=== PATIENT | female | born 1960 | race Hispanic/Latino ===

== ENCOUNTER 2020-07-23 12:17 | Inpatient (IN) | payer BC ==
[~2020-07-23] VITALS: Ht 157.5 cm; Wt 76.1 kg
[2020-07-23 13:11] LABS: APPEARANCE,URINE Clear (CLEAR); BILIRUBIN,URINE Negative (NEGATIVE); COLOR,URINE Yellow (YELLOW); GLUCOSE, URINE (UA) Negative (NEGATIVE); KETONES,URINE >=160 mg/dL (NEGATIVE); LEUKOCYTE ESTERASE ,URINE Trace (NEGATIVE); NITRATE,URINE Negative (NEGATIVE); OCCULT BLOOD,URINE Trace (NEGATIVE); PROTEIN,URINE POS 1+ mg/dL (NEGATIVE)
[2020-07-23 13:18] LABS: BACTERIA,URINE Moderate /HPF (None Seen); MUCUS,URINE Moderate LPF (None Seen); SQUAMOUS EPITHELIAL CELL,UR Few /HPF (0-2)
[2020-07-23 13:22] LABS: BASOPHILS % (AUTO) 0.4 % (0.0-5.0); EOSINOPHILS % (AUTO) 0.2 % (0.0-8.0); HEMATOCRIT 37.8 % (36-48); LYMPHOCYTES % (AUTO) 8.7 % (21.0-51.0); MEAN CORPUSCULAR HEMOGLOBIN 29.2 pg (27.0-33.0); MEAN CORPUSCULAR HGB CONC 33.1 g/dL (32.0-36.0); MEAN CORPUSCULAR VOLUME 88.3 fL (79-99); MONOCYTES % (AUTO) 12.4 % (3.0-13.0); NEUTROPHILS % (AUTO) 77.8 % (40.0-77.0); PLATELET COUNT (AUTO) 596 K/uL (130-400); RED BLOOD CELL COUNT(AUTO) 4.28 MIL/uL (4.00-5.50); RED CELL DISTRIBUTION WIDTH 13.1 % (11.0-15.5); WHITE BLOOD COUNT (AUTO) 14.9 K/uL (4.8-10.8)
[2020-07-23 13:36] LABS: CREATININE 0.8 mg/dL (0.5-1.5); POTASSIUM 3.2 mmol/L (3.5-5.1)
[2020-07-23] MEDS ORDERED: ONDANSETRON HCL 4 MG/2 ML VIAL ONE ×2 (13:36→18:52)
[2020-07-23] MEDS ORDERED: MORPHINE SULFATE 2 MG/ML 1ML SYG ONE ×3 (13:37→18:52)
[2020-07-23] MEDS ORDERED: LACTATED RINGERS 1000ML 2,000 ML IV ONE (13:37)
[2020-07-23 13:40] LABS: ALBUMIN 2.9 g/dL (3.5-5.0); BILIRUBIN,TOTAL 0.5 mg/dL (0.2-1.0); TOTAL PROTEIN, SERUM 8.1 g/dL (6.0-8.3)
[2020-07-23] MEDS ORDERED: DIATR MEGLU/DIATRIZOATE SODIUM 30 ML BOTTLE ONE (14:11)
[2020-07-23] MEDS ORDERED: IOHEXOL-350 75 ML VIAL IV ONE (14:11)
[2020-07-23] MEDS ORDERED: ZOSYN 3.375GM+NS 50ML 50 ML IV ONE (15:14)
[2020-07-23] MEDS ORDERED: LIDOCAINE HCL-MPF 1% 2ML VIAL IV PRN (16:00)
[2020-07-23] MEDS ORDERED: VANCOMYCIN 1GM+NS 250ML 250 ML IV SCH (16:00)
[2020-07-23] MEDS ORDERED: ACETAMINOPHEN 325 MG TAB PO PRN ×2 (16:00)
[2020-07-23] MEDS ORDERED: LACTULOSE 20 GM/30 ML UDCUP PO PRN (16:00)
[2020-07-23] MEDS: SODIUM CHLORIDE 0.9% 1000ML 1,000 ML IV SCH ×2 (16:00→23:46)
[2020-07-23] MEDS ORDERED: COMPOUND IV REFRIGERATED 1 EACH IVSOLN MISC PRN (16:15)
[2020-07-23 16:17] LABS: INR 1.25 (0.85-1.15); PROTHROMBIN TIME 13.1 SEC (9.6-11.6)
[2020-07-23] MEDS ORDERED: ENOXAPARIN SODIUM 40 MG/0.4 ML SYRINGE SQ ONE (16:29)
[2020-07-23] MEDS ORDERED: VANCOMYCIN 1GM+NS 250ML 250 ML IV ONE (16:29)
[2020-07-23] MEDS ORDERED: SODIUM CHLORIDE 0.9% 1000ML 1,000 ML IV ONE (16:30)
[2020-07-23] MEDS ORDERED: POTASSIUM CHLORIDE 10MEQ/100ML 100 ML IV ONE (18:52)
[2020-07-23] MEDS ORDERED: LIDOCAINE HCL-MPF 1% 2ML VIAL ONE (18:53)
[2020-07-23 20:46] VITALS: BP 126/75
[2020-07-23] MEDS ORDERED: ZOSYN 3.375GM+NS 50ML 50 ML IV SCH (21:00)
[2020-07-23] MEDS: FAMOTIDINE/PF 20 MG/2 ML VIAL IV SCH (21:11)
[2020-07-23] MEDS: VANCOMYCIN 1.25 GM in SODIUM CHLORIDE 0.9% 250 ML IV SCH (21:11)
[2020-07-23 21:16] VITALS: BP 119/71
[2020-07-23 22:18] VITALS: BP 103/67
[2020-07-23 23:30] VITALS: BP 132/75
[2020-07-24] VITALS (24 sets, daily range): BP systolic 90–151; BP diastolic 58–89
[2020-07-24] MEDS: LEVOFLOXACIN 500 MG/D5W 100 ML 100 ML IV SCH (00:15)
[2020-07-24] MEDS ORDERED: LEVOFLOXACIN 500 MG/D5W 100 ML 100 ML ONE (00:18)
[2020-07-24] MEDS ORDERED: LEVOFLOXACIN 500 MG/D5W 100 ML 100 ML IV SCH (00:30)
[2020-07-24] MEDS: MORPHINE SULFATE 2 MG/ML 1ML SYG IV PRN ×5 (00:45→23:15)
[2020-07-24] MEDS: ONDANSETRON HCL 4 MG/2 ML VIAL IV PRN ×3 (00:51→19:20)
[2020-07-24 04:48] LABS: BASOPHILS % (AUTO) 0.6 % (0.0-5.0); EOSINOPHILS % (AUTO) 0.3 % (0.0-8.0); HEMATOCRIT 32.2 % (36-48); LYMPHOCYTES % (AUTO) 14.8 % (21.0-51.0); MEAN CORPUSCULAR HEMOGLOBIN 28.9 pg (27.0-33.0); MEAN CORPUSCULAR HGB CONC 32.6 g/dL (32.0-36.0); MEAN CORPUSCULAR VOLUME 88.7 fL (79-99); NEUTROPHILS % (AUTO) 71.6 % (40.0-77.0); PLATELET COUNT (AUTO) 479 K/uL (130-400); RED BLOOD CELL COUNT(AUTO) 3.63 MIL/uL (4.00-5.50); RED CELL DISTRIBUTION WIDTH 13.3 % (11.0-15.5); WHITE BLOOD COUNT (AUTO) 12.2 K/uL (4.8-10.8)
[2020-07-24] MEDS ORDERED: METRONIDAZOLE 500MG/100ML BAG 100 ML ONE (04:51)
[2020-07-24 05:00] LABS: CREATININE 0.7 mg/dL (0.5-1.5); POTASSIUM 3.2 mmol/L (3.5-5.1)
[2020-07-24] MEDS: METRONIDAZOLE 500MG/100ML BAG 100 ML IVPB SCH ×3 (05:02→22:44)
[2020-07-24] MEDS ORDERED: METRONIDAZOLE 500MG/100ML BAG 100 ML IVPB SCH (06:00)
[2020-07-24] MEDS: VANCOMYCIN 1.25 GM in SODIUM CHLORIDE 0.9% 250 ML IV SCH ×2 (08:52→20:47)
[2020-07-24] MEDS: POTASSIUM CHLORIDE 10MEQ/100ML 100 ML IV PRN (08:53)
[2020-07-24] MEDS: FAMOTIDINE/PF 20 MG/2 ML VIAL IV SCH ×2 (08:56→20:46)
[2020-07-24] MEDS: SODIUM CHLORIDE 0.9% 1000ML 1,000 ML IV SCH ×3 (08:56→18:23)
[2020-07-24] MEDS: ENOXAPARIN SODIUM 40 MG/0.4 ML SYRINGE SQ SCH (09:00)
[2020-07-24] MEDS ORDERED: FENTANYL CITRATE PF 50 MCG/1 ML 2ML VIAL ONE ×2 (12:16→13:54)
[2020-07-24] MEDS ORDERED: MIDAZOLAM HCL 1 MG/ML 2ML VIAL ONE (12:17)
[2020-07-24] MEDS ORDERED: HYDROMORPHONE 1 MG/1 ML AMP ONE (13:32)
[2020-07-24] MEDS ORDERED: HYDROMORPHONE 1 MG/1 ML AMP IVP STA (13:45)
[2020-07-24] MEDS ORDERED: FENTANYL CITRATE PF 50 MCG/1 ML 2ML VIAL IVP SCH (13:49)
[2020-07-24] MEDS ORDERED: KETOROLAC TROMETHAMINE 30MG/ML IV STA (14:46)
[2020-07-25] VITALS (19 sets, daily range): BP systolic 93–146; BP diastolic 53–93
[2020-07-25] MEDS: LEVOFLOXACIN 500 MG/D5W 100 ML 100 ML IV SCH ×2 (00:31→23:56)
[2020-07-25] MEDS: SODIUM CHLORIDE 0.9% 1000ML 1,000 ML IV SCH ×3 (01:27→14:16)
[2020-07-25] MEDS: KETOROLAC TROMETHAMINE 30MG/ML IV PRN ×4 (02:12→21:25)
[2020-07-25 03:35] LABS: BASOPHILS % (AUTO) 0.4 % (0.0-5.0); EOSINOPHILS % (AUTO) 0.4 % (0.0-8.0); HEMATOCRIT 30.3 % (36-48); LYMPHOCYTES % (AUTO) 12.1 % (21.0-51.0); MEAN CORPUSCULAR HEMOGLOBIN 28.7 pg (27.0-33.0); MEAN CORPUSCULAR HGB CONC 31.7 g/dL (32.0-36.0); MEAN CORPUSCULAR VOLUME 90.4 fL (79-99); MONOCYTES % (AUTO) 12.1 % (3.0-13.0); NEUTROPHILS % (AUTO) 74.4 % (40.0-77.0); PLATELET COUNT (AUTO) 471 K/uL (130-400); RED BLOOD CELL COUNT(AUTO) 3.35 MIL/uL (4.00-5.50); RED CELL DISTRIBUTION WIDTH 13.7 % (11.0-15.5); WHITE BLOOD COUNT (AUTO) 9.5 K/uL (4.8-10.8)
[2020-07-25 04:00] LABS: ALBUMIN 1.9 g/dL (3.5-5.0); BILIRUBIN,TOTAL 0.3 mg/dL (0.2-1.0); CREATININE 0.7 mg/dL (0.5-1.5); MAGNESIUM 1.9 mg/dL (1.80-2.40); POTASSIUM 3.2 mmol/L (3.5-5.1); TOTAL PROTEIN, SERUM 5.9 g/dL (6.0-8.3)
[2020-07-25] MEDS: POTASSIUM CHLORIDE 10MEQ/100ML 100 ML IV PRN ×2 (04:05→05:37)
[2020-07-25 04:49] LABS: INR 1.4 (0.85-1.15); PROTHROMBIN TIME 14.5 SEC (9.6-11.6)
[2020-07-25] MEDS: METRONIDAZOLE 500MG/100ML BAG 100 ML IVPB SCH ×3 (05:37→23:56)
[2020-07-25] MEDS: FAMOTIDINE/PF 20 MG/2 ML VIAL IV SCH ×2 (08:49→19:57)
[2020-07-25] MEDS: ENOXAPARIN SODIUM 40 MG/0.4 ML SYRINGE SQ SCH ×2 (08:50→09:00)
[2020-07-25] MEDS: VANCOMYCIN 1.25 GM in SODIUM CHLORIDE 0.9% 250 ML IV SCH ×2 (11:44→21:24)
[2020-07-25] MEDS: MORPHINE SULFATE 2 MG/ML 1ML SYG IV PRN (15:05)
[2020-07-25] MEDS: ONDANSETRON HCL 4 MG/2 ML VIAL IV PRN ×2 (15:09→23:57)
[2020-07-25] MEDS ORDERED: CLINIMIX E 4.25%-5% SOLUTION 2,000 ML IV ONE (17:00)
[2020-07-25 20:03] LABS: CREATININE 0.7 mg/dL (0.5-1.5); POTASSIUM 3.4 mmol/L (3.5-5.1)
[2020-07-26 00:10] VITALS: BP 139/76
[2020-07-26 04:13] LABS: BASOPHILS % (AUTO) 0.5 % (0.0-5.0); EOSINOPHILS % (AUTO) 1.7 % (0.0-8.0); HEMATOCRIT 29.4 % (36-48); MEAN CORPUSCULAR HEMOGLOBIN 29.2 pg (27.0-33.0); MEAN CORPUSCULAR HGB CONC 31.6 g/dL (32.0-36.0); MEAN CORPUSCULAR VOLUME 92.2 fL (79-99); MONOCYTES % (AUTO) 12.8 % (3.0-13.0); NEUTROPHILS % (AUTO) 66.2 % (40.0-77.0); PLATELET COUNT (AUTO) 485 K/uL (130-400); RED BLOOD CELL COUNT(AUTO) 3.19 MIL/uL (4.00-5.50); WHITE BLOOD COUNT (AUTO) 7.7 K/uL (4.8-10.8)
[2020-07-26 04:32] VITALS: BP 148/78
[2020-07-26 04:36] LABS: CREATININE 0.7 mg/dL (0.5-1.5); POTASSIUM 3.3 mmol/L (3.5-5.1)
[2020-07-26] MEDS: POTASSIUM CHLORIDE 10MEQ/100ML 100 ML IV PRN ×3 (04:44→21:25)
[2020-07-26] MEDS: METRONIDAZOLE 500MG/100ML BAG 100 ML IVPB SCH ×3 (05:30→20:49)
[2020-07-26 07:49] VITALS: BP 138/78
[2020-07-26] MEDS: FAMOTIDINE/PF 20 MG/2 ML VIAL IV SCH ×2 (08:40→20:49)
[2020-07-26] MEDS: KETOROLAC TROMETHAMINE 30MG/ML IV PRN (08:47)
[2020-07-26] MEDS: ENOXAPARIN SODIUM 40 MG/0.4 ML SYRINGE SQ SCH (09:09)
[2020-07-26] MEDS: VANCOMYCIN 1.25 GM in SODIUM CHLORIDE 0.9% 250 ML IV SCH ×2 (09:15→20:49)
[2020-07-26 12:00] VITALS: BP 151/84
[2020-07-26] MEDS: ONDANSETRON HCL 4 MG/2 ML VIAL IV PRN (15:46)
[2020-07-26 16:00] VITALS: BP 146/83
[2020-07-26] MEDS ORDERED: CLINIMIX E 4.25%-5% SOLUTION 2,000 ML IV ONE (19:30)
[2020-07-26 20:00] VITALS: BP 156/89
[2020-07-26] MEDS: LEVOFLOXACIN 500 MG/D5W 100 ML 100 ML IV SCH (23:35)
[2020-07-27] VITALS: BP 147/88
[2020-07-27] MEDS: KETOROLAC TROMETHAMINE 30MG/ML IV PRN (02:44)
[2020-07-27 04:29] VITALS: BP 139/89
[2020-07-27] MEDS: METRONIDAZOLE 500MG/100ML BAG 100 ML IVPB SCH ×3 (05:07→19:55)
[2020-07-27 08:00] VITALS: BP 137/65
[2020-07-27] MEDS: ENOXAPARIN SODIUM 40 MG/0.4 ML SYRINGE SQ SCH (10:22)
[2020-07-27] MEDS: FAMOTIDINE/PF 20 MG/2 ML VIAL IV SCH (10:22)
[2020-07-27] MEDS: VANCOMYCIN 1.25 GM in SODIUM CHLORIDE 0.9% 250 ML IV SCH (10:22)
[2020-07-27 12:00] VITALS: BP 158/97
[2020-07-27] MEDS ORDERED: VANCOMYCIN 1.25 GM in SODIUM CHLORIDE 0.9% 250 ML IV SCH (14:00)
[2020-07-27] MEDS: PANTOPRAZOLE 40 MG/VIAL IVP SCH (14:30)
[2020-07-27 16:00] VITALS: BP 172/91
[2020-07-27] MEDS: POTASSIUM CHLORIDE 10MEQ/100ML 100 ML IV PRN (16:46)
[2020-07-27] MEDS ORDERED: CLINIMIX E 4.25%-5% SOLUTION 2,000 ML IV ONE (19:45)
[2020-07-27 20:36] VITALS: BP 163/81
[2020-07-27] MEDS ORDERED: ACETAMINOPHEN 650 MG SUPPOSITORY RC ONE (22:32)
[2020-07-27] MEDS: LEVOFLOXACIN 500 MG/D5W 100 ML 100 ML IV SCH (23:20)
[2020-07-28] VITALS (8 sets, daily range): BP systolic 155–168; BP diastolic 83–96
[2020-07-28] MEDS: METRONIDAZOLE 500MG/100ML BAG 100 ML IVPB SCH ×3 (05:11→20:26)
[2020-07-28 06:39] LABS: HEMATOCRIT 28.4 % (36-48); MEAN CORPUSCULAR HEMOGLOBIN 29.1 pg (27.0-33.0); MEAN CORPUSCULAR HGB CONC 32.4 g/dL (32.0-36.0); MEAN CORPUSCULAR VOLUME 89.9 fL (79-99); PLATELET COUNT (AUTO) 459 K/uL (130-400); RED BLOOD CELL COUNT(AUTO) 3.16 MIL/uL (4.00-5.50); RED CELL DISTRIBUTION WIDTH 13.8 % (11.0-15.5)
[2020-07-28 06:58] LABS: ALBUMIN 1.9 g/dL (3.5-5.0); BILIRUBIN,TOTAL 0.1 mg/dL (0.2-1.0); CREATININE 0.6 mg/dL (0.5-1.5); POTASSIUM 3.3 mmol/L (3.5-5.1); TOTAL PROTEIN, SERUM 5.8 g/dL (6.0-8.3)
[2020-07-28] MEDS: POTASSIUM CHLORIDE 10MEQ/100ML 100 ML IV PRN ×3 (07:22→20:29)
[2020-07-28 09:02] LABS: EOSINOPHILS % (MANUAL) 4 % (1-6); LYMPHOCYTES % (MANUAL) 28 % (22-44); MAN.DIFF COMMENT-IMPRESSION MANUAL DIFFERENTIAL; MONOCYTES % (MANUAL) 10 % (2-9); SEGMENTED NEUTROPHILS % 58 % (40-70)
[2020-07-28 09:03] LABS: PLATELET MORPHOLOGY COMMENT SLIGHT INCREASED
[2020-07-28] MEDS: PANTOPRAZOLE 40 MG/VIAL IVP SCH (09:27)
[2020-07-28] MEDS: ENOXAPARIN SODIUM 40 MG/0.4 ML SYRINGE SQ SCH (09:27)
[2020-07-28] MEDS: LEVOFLOXACIN 500 MG/D5W 100 ML 100 ML IV SCH (23:19)
[2020-07-29] MEDS ORDERED: CLINIMIX E 4.25%-5% SOLUTION 2,000 ML IV ONE
[2020-07-29 04:09] VITALS: BP 157/82
[2020-07-29] MEDS: METRONIDAZOLE 500MG/100ML BAG 100 ML IVPB SCH ×3 (04:44→21:40)
[2020-07-29 06:34] LABS: HEMATOCRIT 30.5 % (36-48); MEAN CORPUSCULAR HEMOGLOBIN 29.1 pg (27.0-33.0); MEAN CORPUSCULAR HGB CONC 32.5 g/dL (32.0-36.0); MEAN CORPUSCULAR VOLUME 89.7 fL (79-99); RED BLOOD CELL COUNT(AUTO) 3.4 MIL/uL (4.00-5.50); RED CELL DISTRIBUTION WIDTH 14.2 % (11.0-15.5); WHITE BLOOD COUNT (AUTO) 6.6 K/uL (4.8-10.8)
[2020-07-29 07:04] LABS: BILIRUBIN,TOTAL 0.2 mg/dL (0.2-1.0); CREATININE 0.6 mg/dL (0.5-1.5); MAGNESIUM 2.1 mg/dL (1.80-2.40); POTASSIUM 4.2 mmol/L (3.5-5.1); TOTAL PROTEIN, SERUM 6.3 g/dL (6.0-8.3)
[2020-07-29 07:35] VITALS: BP 152/100
[2020-07-29] MEDS ORDERED: DIATR MEGLU/DIATRIZOATE SODIUM 30 ML BOTTLE ONE (08:44)
[2020-07-29] MEDS: ENOXAPARIN SODIUM 40 MG/0.4 ML SYRINGE SQ SCH (09:35)
[2020-07-29] MEDS: PANTOPRAZOLE 40 MG/VIAL IVP SCH (09:35)
[2020-07-29 11:19] VITALS: BP 167/92
[2020-07-29] MEDS: ONDANSETRON HCL 4 MG/2 ML VIAL IV PRN (12:00)
[2020-07-29 16:00] VITALS: BP 147/88
[2020-07-29] MEDS: PROCALAMINE IV SOLUTION 1,000 ML IV SCH (17:00)
[2020-07-29 20:15] VITALS: BP 148/89
[2020-07-29 23:21] VITALS: BP 139/80
[2020-07-29] MEDS: LEVOFLOXACIN 500 MG/D5W 100 ML 100 ML IV SCH (23:57)
[2020-07-30] VITALS (22 sets, daily range): BP systolic 112–170; BP diastolic 67–102
[2020-07-30 04:26] LABS: MEAN CORPUSCULAR HEMOGLOBIN 28.5 pg (27.0-33.0); MEAN CORPUSCULAR HGB CONC 31.5 g/dL (32.0-36.0); MEAN CORPUSCULAR VOLUME 90.4 fL (79-99); RED BLOOD CELL COUNT(AUTO) 3.65 MIL/uL (4.00-5.50); RED CELL DISTRIBUTION WIDTH 14.2 % (11.0-15.5); WHITE BLOOD COUNT (AUTO) 7.4 K/uL (4.8-10.8)
[2020-07-30 04:56] LABS: ALBUMIN 2.2 g/dL (3.5-5.0); BILIRUBIN,TOTAL 0.2 mg/dL (0.2-1.0); CREATININE 0.7 mg/dL (0.5-1.5); MAGNESIUM 2.1 mg/dL (1.80-2.40); POTASSIUM 4.2 mmol/L (3.5-5.1); TOTAL PROTEIN, SERUM 6.5 g/dL (6.0-8.3)
[2020-07-30] MEDS: METRONIDAZOLE 500MG/100ML BAG 100 ML IVPB SCH ×3 (05:12→21:18)
[2020-07-30] MEDS: ENOXAPARIN SODIUM 40 MG/0.4 ML SYRINGE SQ SCH (09:00)
[2020-07-30] MEDS ORDERED: MIDAZOLAM HCL 1 MG/ML 2ML VIAL ONE (09:00)
[2020-07-30] MEDS ORDERED: PROPOFOL 10 MG/ML 20ML VIAL IV ONE (09:00)
[2020-07-30] MEDS: ONDANSETRON HCL 4 MG/2 ML VIAL IV PRN ×2 (10:24→18:27)
[2020-07-30] MEDS: PANTOPRAZOLE 40 MG/VIAL IVP SCH (13:45)
[2020-07-30] MEDS: LEVOFLOXACIN 500 MG/D5W 100 ML 100 ML IV SCH (23:44)
[2020-07-31] MEDS: PROCALAMINE IV SOLUTION 1,000 ML IV SCH
[2020-07-31] MEDS: ONDANSETRON HCL 4 MG/2 ML VIAL IV PRN ×2 (02:18→22:24)
[2020-07-31 04:05] VITALS: BP 147/68
[2020-07-31] MEDS: METRONIDAZOLE 500MG/100ML BAG 100 ML IVPB SCH ×3 (06:16→20:24)
[2020-07-31 06:33] LABS: HEMATOCRIT 34.1 % (36-48); MEAN CORPUSCULAR HEMOGLOBIN 28.5 pg (27.0-33.0); MEAN CORPUSCULAR HGB CONC 31.4 g/dL (32.0-36.0); MEAN CORPUSCULAR VOLUME 90.7 fL (79-99); RED BLOOD CELL COUNT(AUTO) 3.76 MIL/uL (4.00-5.50); RED CELL DISTRIBUTION WIDTH 14.5 % (11.0-15.5); WHITE BLOOD COUNT (AUTO) 6.7 K/uL (4.8-10.8)
[2020-07-31 06:51] LABS: BILIRUBIN,TOTAL 0.2 mg/dL (0.2-1.0); CREATININE 0.8 mg/dL (0.5-1.5); MAGNESIUM 2.3 mg/dL (1.80-2.40); POTASSIUM 4.2 mmol/L (3.5-5.1); TOTAL PROTEIN, SERUM 6.6 g/dL (6.0-8.3)
[2020-07-31 09:25] VITALS: BP 128/88
[2020-07-31] MEDS ORDERED: DIATR MEGLU/DIATRIZOATE SODIUM 30 ML BOTTLE ONE (09:27)
[2020-07-31] MEDS: PANTOPRAZOLE 40 MG/VIAL IVP SCH ×2 (09:55→23:16)
[2020-07-31] MEDS: ENOXAPARIN SODIUM 40 MG/0.4 ML SYRINGE SQ SCH (13:49)
[2020-07-31 14:30] VITALS: BP 148/77
[2020-07-31 16:36] VITALS: BP 120/72
[2020-07-31] MEDS ORDERED: PROCALAMINE IV SOLUTION 1,000 ML IV SCH (20:15)
[2020-07-31 20:28] VITALS: BP 141/72
[2020-07-31] MEDS ORDERED: LEVOFLOXACIN 750 MG/D5W 150 ML 150 ML ONE (22:28)
[2020-07-31] MEDS ORDERED: PANTOPRAZOLE 40 MG/VIAL ONE (23:10)
[2020-07-31] MEDS: LEVOFLOXACIN 750 MG/D5W 150 ML 150 ML IV SCH (23:15)
[2020-08-01 00:24] VITALS: BP 133/79
[2020-08-01 04:24] VITALS: BP 137/81
[2020-08-01 05:14] LABS: HEMATOCRIT 34.1 % (36-48); MEAN CORPUSCULAR HEMOGLOBIN 28.9 pg (27.0-33.0); MEAN CORPUSCULAR HGB CONC 31.7 g/dL (32.0-36.0); MEAN CORPUSCULAR VOLUME 91.2 fL (79-99); PLATELET COUNT (AUTO) 344 K/uL (130-400); RED BLOOD CELL COUNT(AUTO) 3.74 MIL/uL (4.00-5.50); RED CELL DISTRIBUTION WIDTH 14.4 % (11.0-15.5)
[2020-08-01] MEDS: METRONIDAZOLE 500MG/100ML BAG 100 ML IVPB SCH ×3 (05:20→20:01)
[2020-08-01 05:26] LABS: INR 1.4 (0.85-1.15); PROTHROMBIN TIME 14.5 SEC (9.6-11.6)
[2020-08-01 05:45] LABS: ALBUMIN 2.2 g/dL (3.5-5.0); BILIRUBIN,TOTAL 0.2 mg/dL (0.2-1.0); CREATININE 0.7 mg/dL (0.5-1.5); TOTAL PROTEIN, SERUM 6.5 g/dL (6.0-8.3)
[2020-08-01 07:07] LABS: LYMPHOCYTES % (MANUAL) 23 % (22-44); MONOCYTES % (MANUAL) 11 % (2-9); SEGMENTED NEUTROPHILS % 66 % (40-70)
[2020-08-01 07:08] LABS: MAN.DIFF COMMENT-IMPRESSION MANUAL DIFFERENTIAL; PLATELET MORPHOLOGY COMMENT LARGE PLTS PRESENT
[2020-08-01] MEDS: ENOXAPARIN SODIUM 40 MG/0.4 ML SYRINGE SQ SCH (09:00)
[2020-08-01 09:49] VITALS: BP 136/82
[2020-08-01] MEDS: LEVOFLOXACIN 750 MG/D5W 150 ML 150 ML IV SCH (11:19)
[2020-08-01 13:54] VITALS: BP 119/82
[2020-08-01 19:22] VITALS: BP 121/86
[2020-08-01] MEDS ORDERED: MAG HYDROX/AL HYDROX/SIMETH ES 30 ML SUSP UDCUP ONE (19:41)
[2020-08-01] MEDS ORDERED: MAG HYDROX/AL HYDROX/SIMETH ES 30 ML SUSP UDCUP PO PRN (19:45)
[2020-08-01 20:15] VITALS: BP 123/85
[2020-08-01] MEDS: PROCALAMINE IV SOLUTION 1,000 ML IV SCH (21:44)
[2020-08-02 00:46] VITALS: BP 137/82
[2020-08-02] MEDS: ACETAMINOPHEN 650 MG SUPPOSITORY RC PRN ×3 (03:22→18:14)
[2020-08-02 04:19] LABS: BASOPHILS % (AUTO) 0.6 % (0.0-5.0); EOSINOPHILS % (AUTO) 0.7 % (0.0-8.0); HEMATOCRIT 36.3 % (36-48); LYMPHOCYTES % (AUTO) 15.4 % (21.0-51.0); MEAN CORPUSCULAR HEMOGLOBIN 28.9 pg (27.0-33.0); MEAN CORPUSCULAR VOLUME 90.3 fL (79-99); MONOCYTES % (AUTO) 13.2 % (3.0-13.0); NEUTROPHILS % (AUTO) 68.4 % (40.0-77.0); PLATELET COUNT (AUTO) 306 K/uL (130-400); RED BLOOD CELL COUNT(AUTO) 4.02 MIL/uL (4.00-5.50); RED CELL DISTRIBUTION WIDTH 14.6 % (11.0-15.5); WHITE BLOOD COUNT (AUTO) 10.2 K/uL (4.8-10.8)
[2020-08-02 04:31] LABS: ALBUMIN 2.4 g/dL (3.5-5.0); BILIRUBIN,TOTAL 0.3 mg/dL (0.2-1.0); CREATININE 0.8 mg/dL (0.5-1.5); MAGNESIUM 2.2 mg/dL (1.80-2.40); POTASSIUM 4.1 mmol/L (3.5-5.1)
[2020-08-02] MEDS: METRONIDAZOLE 500MG/100ML BAG 100 ML IVPB SCH ×3 (04:46→21:39)
[2020-08-02 06:00] VITALS: BP 135/77
[2020-08-02] MEDS: PANTOPRAZOLE 40 MG/VIAL IVP SCH (09:28)
[2020-08-02] MEDS: LEVOFLOXACIN 750 MG/D5W 150 ML 150 ML IV SCH (09:28)
[2020-08-02] MEDS: ENOXAPARIN SODIUM 40 MG/0.4 ML SYRINGE SQ SCH (09:29)
[2020-08-02 09:59] VITALS: BP 155/94
[2020-08-02] MEDS ORDERED: APAP/CODEINE 120/12MG 5ML PO PRN ×2 (12:45→13:00)
[2020-08-02 13:42] VITALS: BP 137/87
[2020-08-02 17:40] VITALS: BP 147/82
[2020-08-02 20:00] VITALS: BP 146/95
[2020-08-02] MEDS: PROCALAMINE IV SOLUTION 1,000 ML IV SCH (21:39)
[2020-08-02] MEDS ORDERED: HYDROMORPHONE 1 MG/1 ML AMP IVP ONE (23:45)
[2020-08-03] VITALS: BP 150/86
[2020-08-03 04:00] VITALS: BP 119/79
[2020-08-03] MEDS: METRONIDAZOLE 500MG/100ML BAG 100 ML IVPB SCH ×3 (05:13→20:00)
[2020-08-03 06:44] LABS: BASOPHILS % (AUTO) 0.6 % (0.0-5.0); EOSINOPHILS % (AUTO) 0.6 % (0.0-8.0); HEMATOCRIT 34.9 % (36-48); LYMPHOCYTES % (AUTO) 13.1 % (21.0-51.0); MEAN CORPUSCULAR HEMOGLOBIN 28.6 pg (27.0-33.0); MEAN CORPUSCULAR HGB CONC 31.8 g/dL (32.0-36.0); MEAN CORPUSCULAR VOLUME 89.9 fL (79-99); MONOCYTES % (AUTO) 10.2 % (3.0-13.0); NEUTROPHILS % (AUTO) 74.2 % (40.0-77.0); PLATELET COUNT (AUTO) 348 K/uL (130-400); RED BLOOD CELL COUNT(AUTO) 3.88 MIL/uL (4.00-5.50); RED CELL DISTRIBUTION WIDTH 14.7 % (11.0-15.5)
[2020-08-03 07:03] LABS: ALBUMIN 2.1 g/dL (3.5-5.0); BILIRUBIN,TOTAL 0.3 mg/dL (0.2-1.0); CREATININE 0.8 mg/dL (0.5-1.5); MAGNESIUM 2.3 mg/dL (1.80-2.40); PHOSPHORUS 3.3 mg/dL (2.5-4.9); POTASSIUM 4.2 mmol/L (3.5-5.1); TOTAL PROTEIN, SERUM 6.5 g/dL (6.0-8.3)
[2020-08-03 08:00] VITALS: BP 147/83
[2020-08-03] MEDS: LEVOFLOXACIN 750 MG/D5W 150 ML 150 ML IV SCH (08:09)
[2020-08-03] MEDS: ENOXAPARIN SODIUM 40 MG/0.4 ML SYRINGE SQ SCH (08:09)
[2020-08-03] MEDS: PANTOPRAZOLE 40 MG/VIAL IVP SCH (08:09)
[2020-08-03] MEDS: ACETAMINOPHEN 650 MG SUPPOSITORY RC PRN ×2 (10:13→18:13)
[2020-08-03] MEDS: LORAZEPAM 2 MG/ML 1 ML VIAL IVP PRN (11:23)
[2020-08-03 12:00] VITALS: BP 126/73
[2020-08-03 16:00] VITALS: BP 145/80
[2020-08-03 20:00] VITALS: BP 122/74
[2020-08-03] MEDS: PROCALAMINE IV SOLUTION 1,000 ML IV SCH (20:27)
[2020-08-04] VITALS (7 sets, daily range): BP systolic 119–145; BP diastolic 74–92
[2020-08-04] MEDS: METRONIDAZOLE 500MG/100ML BAG 100 ML IVPB SCH ×3 (04:56→21:49)
[2020-08-04 06:27] LABS: BASOPHILS % (AUTO) 0.6 % (0.0-5.0); EOSINOPHILS % (AUTO) 1.3 % (0.0-8.0); HEMATOCRIT 33.4 % (36-48); LYMPHOCYTES % (AUTO) 18.1 % (21.0-51.0); MEAN CORPUSCULAR HEMOGLOBIN 28.8 pg (27.0-33.0); MONOCYTES % (AUTO) 11.5 % (3.0-13.0); PLATELET COUNT (AUTO) 334 K/uL (130-400); RED BLOOD CELL COUNT(AUTO) 3.71 MIL/uL (4.00-5.50); RED CELL DISTRIBUTION WIDTH 14.7 % (11.0-15.5)
[2020-08-04 06:58] LABS: BILIRUBIN,TOTAL 0.2 mg/dL (0.2-1.0); CREATININE 0.8 mg/dL (0.5-1.5); MAGNESIUM 2.2 mg/dL (1.80-2.40); PHOSPHORUS 3.2 mg/dL (2.5-4.9); POTASSIUM 4.1 mmol/L (3.5-5.1); TOTAL PROTEIN, SERUM 6.4 g/dL (6.0-8.3)
[2020-08-04] MEDS: LEVOFLOXACIN 750 MG/D5W 150 ML 150 ML IV SCH (08:16)
[2020-08-04] MEDS: ENOXAPARIN SODIUM 40 MG/0.4 ML SYRINGE SQ SCH (08:17)
[2020-08-04] MEDS: PANTOPRAZOLE 40 MG/VIAL IVP SCH (08:17)
[2020-08-04] MEDS: LORAZEPAM 2 MG/ML 1 ML VIAL IVP PRN ×2 (16:59→17:03)
[2020-08-04] MEDS: PROCALAMINE IV SOLUTION 1,000 ML IV SCH (21:59)
[2020-08-05] MEDS: LORAZEPAM 2 MG/ML 1 ML VIAL IVP PRN ×3 (01:07→19:31)
[2020-08-05 04:10] VITALS: BP 132/79
[2020-08-05] MEDS: METRONIDAZOLE 500MG/100ML BAG 100 ML IVPB SCH ×3 (04:52→19:30)
[2020-08-05 05:35] LABS: BASOPHILS % (AUTO) 0.9 % (0.0-5.0); EOSINOPHILS % (AUTO) 1.6 % (0.0-8.0); HEMATOCRIT 33.2 % (36-48); LYMPHOCYTES % (AUTO) 22.9 % (21.0-51.0); MEAN CORPUSCULAR HEMOGLOBIN 28.4 pg (27.0-33.0); MEAN CORPUSCULAR HGB CONC 31.6 g/dL (32.0-36.0); MEAN CORPUSCULAR VOLUME 89.7 fL (79-99); PLATELET COUNT (AUTO) 377 K/uL (130-400); RED CELL DISTRIBUTION WIDTH 14.6 % (11.0-15.5)
[2020-08-05 06:01] LABS: ALBUMIN 2.2 g/dL (3.5-5.0); BILIRUBIN,TOTAL 0.3 mg/dL (0.2-1.0); CREATININE 0.8 mg/dL (0.5-1.5); MAGNESIUM 3.4 mg/dL (1.80-2.40); PHOSPHORUS 3.1 mg/dL (2.5-4.9); POTASSIUM 3.7 mmol/L (3.5-5.1); TOTAL PROTEIN, SERUM 6.6 g/dL (6.0-8.3)
[2020-08-05 08:00] VITALS: BP 129/80
[2020-08-05] MEDS: LEVOFLOXACIN 750 MG/D5W 150 ML 150 ML IV SCH (09:11)
[2020-08-05] MEDS: PANTOPRAZOLE 40 MG/VIAL IVP SCH (09:12)
[2020-08-05] MEDS: ENOXAPARIN SODIUM 40 MG/0.4 ML SYRINGE SQ SCH (09:13)
[2020-08-05 11:00] VITALS: BP 131/70
[2020-08-05] MEDS: PROCALAMINE IV SOLUTION 1,000 ML IV SCH (18:09)
[2020-08-05 20:44] VITALS: BP 136/77
[2020-08-06] MEDS: LORAZEPAM 2 MG/ML 1 ML VIAL IVP PRN (03:55)
[2020-08-06] MEDS: METRONIDAZOLE 500MG/100ML BAG 100 ML IVPB SCH ×3 (03:57→21:20)
[2020-08-06] MEDS: [UNRECOGNIZED DRUG - OTHER] IV SCH (04:06)
[2020-08-06] MEDS: M V I IV SCH (04:06)
[2020-08-06 07:30] VITALS: BP 129/89
[2020-08-06] MEDS: LEVOFLOXACIN 750 MG/D5W 150 ML 150 ML IV SCH (09:00)
[2020-08-06] MEDS: ENOXAPARIN SODIUM 40 MG/0.4 ML SYRINGE SQ SCH (10:05)
[2020-08-06] MEDS: PANTOPRAZOLE 40 MG/VIAL IVP SCH (10:05)
[2020-08-06 11:00] VITALS: BP 126/82
[2020-08-06] MEDS ORDERED: IPRATROPIUM/ALBUTEROL SULFATE 3 ML SOLUTION IH PRN (14:00)
[2020-08-06 16:00] VITALS: BP 131/87
[2020-08-06] MEDS ORDERED: PHARMACY COMMUNICATION MISC SCH (20:15)
[2020-08-06 20:25] VITALS: BP 131/88
[2020-08-06] MEDS: PROCALAMINE IV SOLUTION 1,000 ML IV SCH (21:23)
[2020-08-06] MEDS ORDERED: MORPHINE SULFATE 2 MG/ML 1ML SYG ONE (21:28)
[2020-08-06] MEDS ORDERED: MORPHINE SULFATE 4 MG/1ML SYG IV PRN (21:30)
[2020-08-06] MEDS ORDERED: MORPHINE SULFATE 2 MG/ML 1ML SYG IVP PRN (21:30)
[2020-08-06 23:51] VITALS: BP 132/81
[2020-08-07 03:51] VITALS: BP 132/81
[2020-08-07] MEDS: METRONIDAZOLE 500MG/100ML BAG 100 ML IVPB SCH ×3 (05:32→20:55)
[2020-08-07] MEDS: ACETAMINOPHEN 650 MG SUPPOSITORY RC PRN ×2 (05:32→20:37)
[2020-08-07 08:03] VITALS: BP 133/90
[2020-08-07] MEDS: PANTOPRAZOLE 40 MG/VIAL IVP SCH (09:18)
[2020-08-07] MEDS: LEVOFLOXACIN 750 MG/D5W 150 ML 150 ML IV SCH (09:18)
[2020-08-07] MEDS: ENOXAPARIN SODIUM 40 MG/0.4 ML SYRINGE SQ SCH (09:19)
[2020-08-07 11:00] VITALS: BP 118/94
[2020-08-07] MEDS: LORAZEPAM 2 MG/ML 1 ML VIAL IVP PRN ×2 (11:20→23:02)
[2020-08-07] MEDS: PROCALAMINE IV SOLUTION 1,000 ML IV SCH (12:10)
[2020-08-07 13:10] LABS: HEMOGLOBIN A1C 5.4 % (4.0-6.0)
[2020-08-07 15:59] VITALS: BP 141/86
[2020-08-07] MEDS: MICONAZOLE NITRATE 45 GM CREAM.APPL VG SCH ×2 (18:28→19:19)
[2020-08-07 19:31] LABS: APPEARANCE,URINE Clear (CLEAR); BILIRUBIN,URINE Negative (NEGATIVE); COLOR,URINE Yellow (YELLOW); GLUCOSE, URINE (UA) Negative (NEGATIVE); KETONES,URINE Trace mg/dL (NEGATIVE); LEUKOCYTE ESTERASE ,URINE Small (NEGATIVE); NITRATE,URINE Negative (NEGATIVE); OCCULT BLOOD,URINE Negative (NEGATIVE); PH,URINE 5.5 (5.0-8.0); PROTEIN,URINE Negative (NEGATIVE); UROBILINOGEN,URINE 0.2 mg/dL (0.2-1.0)
[2020-08-07 19:47] LABS: BACTERIA,URINE Few /HPF (None Seen); MUCUS,URINE Few LPF (None Seen); SQUAMOUS EPITHELIAL CELL,UR Moderate /HPF (0-2)
[2020-08-07 20:00] VITALS: BP 144/93
[2020-08-07] MEDS: [UNRECOGNIZED DRUG - OTHER] IV SCH (20:55)
[2020-08-07] MEDS: M V I IV SCH (20:55)
[2020-08-07] MEDS ORDERED: MICONAZOLE NITRATE 45 GM CREAM.APPL VG SCH (21:00)
[2020-08-07] MEDS ORDERED: LACTOBACILLUS RHAMNOSUS GG 1 EACH CAP.SPRINK PO SCH (21:00)
[2020-08-07] MEDS ORDERED: NYSTATIN-TRIAMCINOLONE CREAM 15 GM TP SCH (21:00)
[2020-08-07 23:21] VITALS: BP 146/79
[2020-08-08 04:45] VITALS: BP 144/75
[2020-08-08] MEDS: METRONIDAZOLE 500MG/100ML BAG 100 ML IVPB SCH ×3 (05:00→21:23)
[2020-08-08] MEDS: PROCALAMINE IV SOLUTION 1,000 ML IV SCH (06:47)
[2020-08-08 08:01] VITALS: BP 128/68
[2020-08-08] MEDS ORDERED: FLUCONAZOLE 200 MG/NS 100 ML 100 ML IV SCH (09:00)
[2020-08-08] MEDS: PANTOPRAZOLE 40 MG/VIAL IVP SCH (09:58)
[2020-08-08] MEDS: ENOXAPARIN SODIUM 40 MG/0.4 ML SYRINGE SQ SCH (09:58)
[2020-08-08] MEDS: LEVOFLOXACIN 750 MG/D5W 150 ML 150 ML IV SCH (11:16)
[2020-08-08 11:43] VITALS: BP 124/63
[2020-08-08] MEDS: LORAZEPAM 2 MG/ML 1 ML VIAL IVP PRN ×2 (14:22→22:22)
[2020-08-08 16:05] VITALS: BP 143/92
[2020-08-08] MEDS ORDERED: PHARMACY COMMUNICATION MISC SCH (19:30)
[2020-08-08 19:58] VITALS: BP 139/82
[2020-08-08] MEDS: M V I IV SCH (21:22)
[2020-08-08] MEDS: [UNRECOGNIZED DRUG - OTHER] IV SCH (21:22)
[2020-08-08] MEDS: MICONAZOLE NITRATE 45 GM CREAM.APPL VG SCH (22:22)
[2020-08-08 23:38] VITALS: BP 126/84
[2020-08-09 04:01] VITALS: BP 140/88
[2020-08-09 04:35] LABS: EOSINOPHILS % (AUTO) 2.9 % (0.0-8.0); HEMATOCRIT 33.1 % (36-48); LYMPHOCYTES % (AUTO) 29.7 % (21.0-51.0); MEAN CORPUSCULAR HEMOGLOBIN 28.3 pg (27.0-33.0); MEAN CORPUSCULAR HGB CONC 31.1 g/dL (32.0-36.0); MEAN CORPUSCULAR VOLUME 90.9 fL (79-99); MONOCYTES % (AUTO) 12.1 % (3.0-13.0); PLATELET COUNT (AUTO) 401 K/uL (130-400); RED BLOOD CELL COUNT(AUTO) 3.64 MIL/uL (4.00-5.50); RED CELL DISTRIBUTION WIDTH 14.9 % (11.0-15.5)
[2020-08-09 05:01] LABS: ALBUMIN 2.3 g/dL (3.5-5.0); BILIRUBIN,TOTAL 0.2 mg/dL (0.2-1.0); CREATININE 0.7 mg/dL (0.5-1.5); POTASSIUM 4.1 mmol/L (3.5-5.1); TOTAL PROTEIN, SERUM 6.5 g/dL (6.0-8.3)
[2020-08-09] MEDS: METRONIDAZOLE 500MG/100ML BAG 100 ML IVPB SCH ×3 (05:07→20:53)
[2020-08-09] MEDS: PROCALAMINE IV SOLUTION 1,000 ML IV SCH ×2 (06:07→22:45)
[2020-08-09 08:00] VITALS: BP 134/87
[2020-08-09] MEDS: LEVOFLOXACIN 750 MG/D5W 150 ML 150 ML IV SCH (09:20)
[2020-08-09] MEDS: ENOXAPARIN SODIUM 40 MG/0.4 ML SYRINGE SQ SCH (09:24)
[2020-08-09] MEDS: PANTOPRAZOLE 40 MG/VIAL IVP SCH (09:32)
[2020-08-09] MEDS: LORAZEPAM 2 MG/ML 1 ML VIAL IVP PRN ×2 (11:10→22:45)
[2020-08-09 12:00] VITALS: BP 135/89
[2020-08-09 16:00] VITALS: BP 143/85
[2020-08-09 20:08] VITALS: BP 128/86
[2020-08-09] MEDS: MICONAZOLE NITRATE 45 GM CREAM.APPL VG SCH (20:55)
[2020-08-09] MEDS ORDERED: PHARMACY COMMUNICATION MISC SCH (21:00)
[2020-08-10 00:12] VITALS: BP 137/85
[2020-08-10 04:16] VITALS: BP 124/85
[2020-08-10] MEDS: METRONIDAZOLE 500MG/100ML BAG 100 ML IVPB SCH ×3 (04:56→20:45)
[2020-08-10] MEDS: PANTOPRAZOLE 40 MG/VIAL IVP SCH (05:38)
[2020-08-10 07:07] LABS: ALBUMIN 2.3 g/dL (3.5-5.0); BILIRUBIN,TOTAL 0.2 mg/dL (0.2-1.0); CREATININE 0.7 mg/dL (0.5-1.5); MAGNESIUM 2.2 mg/dL (1.80-2.40); PHOSPHORUS 3.2 mg/dL (2.5-4.9); POTASSIUM 4.2 mmol/L (3.5-5.1); TOTAL PROTEIN, SERUM 6.5 g/dL (6.0-8.3)
[2020-08-10] MEDS ORDERED: PHARMACY COMMUNICATION MISC SCH (07:45)
[2020-08-10 08:00] VITALS: BP 145/85
[2020-08-10] MEDS: LEVOFLOXACIN 750 MG/D5W 150 ML 150 ML IV SCH (08:51)
[2020-08-10] MEDS: ENOXAPARIN SODIUM 40 MG/0.4 ML SYRINGE SQ SCH (08:51)
[2020-08-10 11:00] VITALS: BP 114/79
[2020-08-10] MEDS: PROCALAMINE IV SOLUTION 1,000 ML IV SCH (12:01)
[2020-08-10 16:00] VITALS: BP 135/81
[2020-08-10 20:12] VITALS: BP 144/75
[2020-08-10] MEDS: [UNRECOGNIZED DRUG - OTHER] IV NR (20:45)
[2020-08-10] MEDS: M V I IV NR (20:45)
[2020-08-10] MEDS ORDERED: LORAZEPAM 2 MG/ML 1 ML VIAL ONE (22:01)
[2020-08-10] MEDS: MICONAZOLE NITRATE 45 GM CREAM.APPL VG SCH (22:12)
[2020-08-11 00:16] VITALS: BP 146/87
[2020-08-11 04:16] VITALS: BP 139/86
[2020-08-11] MEDS: METRONIDAZOLE 500MG/100ML BAG 100 ML IVPB SCH ×3 (05:05→21:00)
[2020-08-11] MEDS: PANTOPRAZOLE 40 MG/VIAL IVP SCH (05:05)
[2020-08-11] MEDS: PROCALAMINE IV SOLUTION 1,000 ML IV SCH ×2 (05:12→14:24)
[2020-08-11 06:52] LABS: HEMATOCRIT 31.7 % (36-48); MEAN CORPUSCULAR HEMOGLOBIN 28.5 pg (27.0-33.0); MEAN CORPUSCULAR HGB CONC 30.6 g/dL (32.0-36.0); MEAN CORPUSCULAR VOLUME 93.2 fL (79-99); PLATELET COUNT (AUTO) 219 K/uL (130-400); RED CELL DISTRIBUTION WIDTH 15.4 % (11.0-15.5); WHITE BLOOD COUNT (AUTO) 4.5 K/uL (4.8-10.8)
[2020-08-11 07:53] VITALS: BP 146/90
[2020-08-11] MEDS: ENOXAPARIN SODIUM 40 MG/0.4 ML SYRINGE SQ SCH (09:54)
[2020-08-11] MEDS: LEVOFLOXACIN 750 MG/D5W 150 ML 150 ML IV SCH (09:57)
[2020-08-11 11:30] VITALS: BP_SYST 137; BP_SYST 91; BP_DIAS 56; BP_DIAS 79
[2020-08-11 16:00] VITALS: BP 152/92
[2020-08-11] MEDS ORDERED: ALTEPLASE 2 MG/VIAL IVCATH ONE (16:30)
[2020-08-11] MEDS ORDERED: ALTEPLASE 2 MG/VIAL IVCATH SCH (16:30)
[2020-08-11] MEDS: M V I IV NR (18:00)
[2020-08-11] MEDS: [UNRECOGNIZED DRUG - OTHER] IV NR (18:00)
[2020-08-11 20:08] VITALS: BP 153/94
[2020-08-11] MEDS: LORAZEPAM 2 MG/ML 1 ML VIAL IVP PRN (21:02)
[2020-08-11] MEDS: MICONAZOLE NITRATE 45 GM CREAM.APPL VG SCH (21:09)
[2020-08-12] VITALS (7 sets, daily range): BP systolic 118–148; BP diastolic 75–89
[2020-08-12] MEDS: METRONIDAZOLE 500MG/100ML BAG 100 ML IVPB SCH ×3 (06:05→21:17)
[2020-08-12] MEDS: PROCALAMINE IV SOLUTION 1,000 ML IV SCH ×2 (06:14→16:53)
[2020-08-12 06:41] LABS: HEMATOCRIT 37.9 % (36-48); MEAN CORPUSCULAR HEMOGLOBIN 27.9 pg (27.0-33.0); MEAN CORPUSCULAR HGB CONC 30.9 g/dL (32.0-36.0); MEAN CORPUSCULAR VOLUME 90.5 fL (79-99); PLATELET COUNT (AUTO) 255 K/uL (130-400); RED BLOOD CELL COUNT(AUTO) 4.19 MIL/uL (4.00-5.50); RED CELL DISTRIBUTION WIDTH 15.3 % (11.0-15.5); WHITE BLOOD COUNT (AUTO) 5.5 K/uL (4.8-10.8)
[2020-08-12] MEDS ORDERED: DIATR MEGLU/DIATRIZOATE SODIUM 30 ML BOTTLE ONE (07:32)
[2020-08-12] MEDS: ONDANSETRON HCL 4 MG/2 ML VIAL IV PRN (08:39)
[2020-08-12] MEDS: PANTOPRAZOLE 40 MG/VIAL IVP SCH (09:08)
[2020-08-12 09:09] LABS: BAND NEUTROPHILS % (MANUAL) 3 % (0-2); BASOPHILS % (MANUAL) 1 % (0-2); EOSINOPHILS % (MANUAL) 1 % (1-6); LYMPHOCYTES % (MANUAL) 31 % (22-44); MONOCYTES % (MANUAL) 15 % (2-9); SEGMENTED NEUTROPHILS % 49 % (40-70)
[2020-08-12 09:10] LABS: MAN.DIFF COMMENT-IMPRESSION MANUAL DIFFERENTIAL; PLATELET MORPHOLOGY COMMENT ADEQUATE
[2020-08-12] MEDS: ENOXAPARIN SODIUM 40 MG/0.4 ML SYRINGE SQ SCH (09:13)
[2020-08-12] MEDS: LEVOFLOXACIN 750 MG/D5W 150 ML 150 ML IV SCH (09:13)
[2020-08-12] MEDS: [UNRECOGNIZED DRUG - OTHER] IV NR (16:59)
[2020-08-12] MEDS: M V I IV NR (16:59)
[2020-08-12] MEDS: MICONAZOLE NITRATE 45 GM CREAM.APPL VG SCH (21:18)
[2020-08-13] MEDS: LORAZEPAM 2 MG/ML 1 ML VIAL IVP PRN ×2 (00:47→20:04)
[2020-08-13] MEDS: PROCALAMINE IV SOLUTION 1,000 ML IV SCH ×3 (01:54→21:15)
[2020-08-13 04:47] VITALS: BP 117/78
[2020-08-13] MEDS: METRONIDAZOLE 500MG/100ML BAG 100 ML IVPB SCH ×3 (05:40→21:15)
[2020-08-13 08:14] VITALS: BP 142/80
[2020-08-13] MEDS: PANTOPRAZOLE 40 MG/VIAL IVP SCH (09:58)
[2020-08-13] MEDS: LEVOFLOXACIN 750 MG/D5W 150 ML 150 ML IV SCH (09:58)
[2020-08-13] MEDS: ENOXAPARIN SODIUM 40 MG/0.4 ML SYRINGE SQ SCH (09:59)
[2020-08-13 11:23] VITALS: BP 123/77
[2020-08-13 16:38] VITALS: BP 147/84
[2020-08-13] MEDS: M V I IV NR (18:26)
[2020-08-13] MEDS: [UNRECOGNIZED DRUG - OTHER] IV NR (18:26)
[2020-08-13 19:42] VITALS: BP 144/84
[2020-08-13] MEDS: MICONAZOLE NITRATE 45 GM CREAM.APPL VG SCH (20:09)
[2020-08-13 23:25] VITALS: BP 146/88
[2020-08-14] MEDS: PROCALAMINE IV SOLUTION 1,000 ML IV SCH ×3 (01:46→19:25)
[2020-08-14 04:08] VITALS: BP 146/90
[2020-08-14] MEDS: METRONIDAZOLE 500MG/100ML BAG 100 ML IVPB SCH ×3 (05:24→22:54)
[2020-08-14 08:43] VITALS: BP 135/81
[2020-08-14] MEDS: LEVOFLOXACIN 750 MG/D5W 150 ML 150 ML IV SCH (09:10)
[2020-08-14] MEDS: PANTOPRAZOLE 40 MG/VIAL IVP SCH (09:12)
[2020-08-14] MEDS: ENOXAPARIN SODIUM 40 MG/0.4 ML SYRINGE SQ SCH (09:12)
[2020-08-14 11:47] VITALS: BP 140/91
[2020-08-14 16:50] VITALS: BP 125/88
[2020-08-14] MEDS ORDERED: CLINIMIX E 4.25%-5% SOLUTION 2,000 ML IV ONE (18:30)
[2020-08-14 19:32] VITALS: BP 138/76
[2020-08-14] MEDS: MICONAZOLE NITRATE 45 GM CREAM.APPL VG SCH (21:00)
[2020-08-14] MEDS: LORAZEPAM 2 MG/ML 1 ML VIAL IVP PRN (23:04)
[2020-08-15] VITALS (7 sets, daily range): BP systolic 126–149; BP diastolic 71–86
[2020-08-15] MEDS: PROCALAMINE IV SOLUTION 1,000 ML IV SCH (02:00)
[2020-08-15] MEDS: METRONIDAZOLE 500MG/100ML BAG 100 ML IVPB SCH ×3 (05:19→22:30)
[2020-08-15 06:59] LABS: EOSINOPHILS % (AUTO) 2.7 % (0.0-8.0); HEMATOCRIT 35.5 % (36-48); LYMPHOCYTES % (AUTO) 32.9 % (21.0-51.0); MEAN CORPUSCULAR HEMOGLOBIN 28.8 pg (27.0-33.0); MEAN CORPUSCULAR HGB CONC 31.8 g/dL (32.0-36.0); MEAN CORPUSCULAR VOLUME 90.6 fL (79-99); MONOCYTES % (AUTO) 14.8 % (3.0-13.0); NEUTROPHILS % (AUTO) 47.6 % (40.0-77.0); PLATELET COUNT (AUTO) 371 K/uL (130-400); RED BLOOD CELL COUNT(AUTO) 3.92 MIL/uL (4.00-5.50); RED CELL DISTRIBUTION WIDTH 15.5 % (11.0-15.5); WHITE BLOOD COUNT (AUTO) 4.1 K/uL (4.8-10.8)
[2020-08-15 07:24] LABS: ALBUMIN 2.8 g/dL (3.5-5.0); BILIRUBIN,TOTAL 0.2 mg/dL (0.2-1.0); CREATININE 0.6 mg/dL (0.5-1.5); MAGNESIUM 2.2 mg/dL (1.80-2.40); POTASSIUM 4.1 mmol/L (3.5-5.1); TOTAL PROTEIN, SERUM 6.8 g/dL (6.0-8.3)
[2020-08-15] MEDS: PANTOPRAZOLE 40 MG/VIAL IVP SCH (09:04)
[2020-08-15] MEDS: ENOXAPARIN SODIUM 40 MG/0.4 ML SYRINGE SQ SCH (09:07)
[2020-08-15] MEDS ORDERED: CLINIMIX E 4.25%-5% SOLUTION 2,000 ML IV SCH (16:45)
[2020-08-15] MEDS ORDERED: ALTEPLASE 2 MG/VIAL IVCATH SCH ×2 (16:45)
[2020-08-15] MEDS: LEVOFLOXACIN 750 MG/D5W 150 ML 150 ML IV SCH (20:05)
[2020-08-15] MEDS: LORAZEPAM 2 MG/ML 1 ML VIAL IVP PRN ×2 (20:06→22:44)
[2020-08-15] MEDS: MICONAZOLE NITRATE 45 GM CREAM.APPL VG SCH (21:00)
[2020-08-16] VITALS (7 sets, daily range): BP systolic 103–182; BP diastolic 51–86
[2020-08-16 05:13] LABS: BASOPHILS % (AUTO) 0.7 % (0.0-5.0); EOSINOPHILS % (AUTO) 2.1 % (0.0-8.0); HEMATOCRIT 36.8 % (36-48); LYMPHOCYTES % (AUTO) 33.5 % (21.0-51.0); MEAN CORPUSCULAR HEMOGLOBIN 28.8 pg (27.0-33.0); MEAN CORPUSCULAR HGB CONC 31.8 g/dL (32.0-36.0); MEAN CORPUSCULAR VOLUME 90.6 fL (79-99); MONOCYTES % (AUTO) 16.7 % (3.0-13.0); NEUTROPHILS % (AUTO) 46.1 % (40.0-77.0); PLATELET COUNT (AUTO) 364 K/uL (130-400); RED BLOOD CELL COUNT(AUTO) 4.06 MIL/uL (4.00-5.50); RED CELL DISTRIBUTION WIDTH 15.4 % (11.0-15.5); WHITE BLOOD COUNT (AUTO) 4.2 K/uL (4.8-10.8)
[2020-08-16 05:39] LABS: ALBUMIN 2.8 g/dL (3.5-5.0); BILIRUBIN,TOTAL 0.2 mg/dL (0.2-1.0); CREATININE 0.7 mg/dL (0.5-1.5); POTASSIUM 4.3 mmol/L (3.5-5.1); TOTAL PROTEIN, SERUM 7.1 g/dL (6.0-8.3)
[2020-08-16] MEDS: METRONIDAZOLE 500MG/100ML BAG 100 ML IVPB SCH ×3 (06:03→20:52)
[2020-08-16] MEDS: PANTOPRAZOLE 40 MG/VIAL IVP SCH (09:06)
[2020-08-16] MEDS: ENOXAPARIN SODIUM 40 MG/0.4 ML SYRINGE SQ SCH (09:06)
[2020-08-16] MEDS ORDERED: FAT EMULSIONS 20% 250ML 250 ML IV SCH (10:00)
[2020-08-16] MEDS: ONDANSETRON HCL 4 MG/2 ML VIAL IV PRN (10:54)
[2020-08-16] MEDS ORDERED: DIATR MEGLU/DIATRIZOATE SODIUM 30 ML BOTTLE ONE (11:01)
[2020-08-16] MEDS: LEVOFLOXACIN 750 MG/D5W 150 ML 150 ML IV SCH (17:47)
[2020-08-16] MEDS: LORAZEPAM 2 MG/ML 1 ML VIAL IVP PRN (20:53)
[2020-08-16] MEDS: MICONAZOLE NITRATE 45 GM CREAM.APPL VG SCH (20:55)
[2020-08-17 04:00] VITALS: BP 120/72
[2020-08-17] MEDS: METRONIDAZOLE 500MG/100ML BAG 100 ML IVPB SCH ×2 (06:13→13:51)
[2020-08-17 06:26] LABS: BASOPHILS % (AUTO) 0.9 % (0.0-5.0); EOSINOPHILS % (AUTO) 2.8 % (0.0-8.0); HEMATOCRIT 37.2 % (36-48); MEAN CORPUSCULAR HEMOGLOBIN 28.9 pg (27.0-33.0); MEAN CORPUSCULAR HGB CONC 31.7 g/dL (32.0-36.0); MONOCYTES % (AUTO) 13.7 % (3.0-13.0); NEUTROPHILS % (AUTO) 42.7 % (40.0-77.0); PLATELET COUNT (AUTO) 347 K/uL (130-400); RED BLOOD CELL COUNT(AUTO) 4.09 MIL/uL (4.00-5.50); RED CELL DISTRIBUTION WIDTH 15.8 % (11.0-15.5); WHITE BLOOD COUNT (AUTO) 4.2 K/uL (4.8-10.8)
[2020-08-17 06:43] LABS: BILIRUBIN,TOTAL 0.3 mg/dL (0.2-1.0); CREATININE 0.9 mg/dL (0.5-1.5); POTASSIUM 4.4 mmol/L (3.5-5.1); TOTAL PROTEIN, SERUM 7.4 g/dL (6.0-8.3)
[2020-08-17] MEDS: ONDANSETRON HCL 4 MG/2 ML VIAL IV PRN (06:48)
[2020-08-17 08:43] VITALS: BP 113/76
[2020-08-17] MEDS: ENOXAPARIN SODIUM 40 MG/0.4 ML SYRINGE SQ SCH (10:16)
[2020-08-17] MEDS: PANTOPRAZOLE 40 MG/VIAL IVP SCH (10:16)
[2020-08-17 11:45] VITALS: BP 125/78
[2020-08-17] MEDS: LEVOFLOXACIN 750 MG/D5W 150 ML 150 ML IV SCH (16:09)
== END 2020-08-17 18:20 | disposition home or self-care (01) | DRG 871 ==
LOC: EDH 12:17 → EDHIP 15:53 → 2DH 21:06 → 3DH 07-26 11:06 → 3AH 08-06 04:04
PROVIDERS: ADMIT Hospitalist; ATTEND Hospitalist
PROC: 0W9G30Z Drainage of Peritoneal Cavity with Drainage Device, Percutaneous Approach (ICD-10-PCS; principal; 2020-07-24)
PROC: 02HV33Z Insertion of Infusion Device into Superior Vena Cava, Percutaneous Approach (ICD-10-PCS; 2020-07-24)
PROC: 0DJ08ZZ Inspection of Upper Intestinal Tract, Via Natural or Artificial Opening Endoscopic (ICD-10-PCS; 2020-07-30)
DX: A41.50 Gram-negative sepsis, unspecified (principal); K65.1 Peritoneal abscess; N39.0 Urinary tract infection, site not specified; E44.1 Mild protein-calorie malnutrition; K95.89 Other complications of other bariatric procedure; Y83.8 Other surgical procedures as the cause of abnormal reaction of the patient, or of later complication, without mention of misadventure at the time of the procedure; Z98.84 Bariatric surgery status; E87.6 Hypokalemia; I10 Essential (primary) hypertension; E66.01 Morbid (severe) obesity due to excess calories; B96.20 Unspecified Escherichia coli [E. coli] as the cause of diseases classified elsewhere; E11.9 Type 2 diabetes mellitus without complications; D72.810 Lymphocytopenia; F41.9 Anxiety disorder, unspecified; M25.50 Pain in unspecified joint; G89.29 Other chronic pain; K21.9 Gastro-esophageal reflux disease without esophagitis; Z90.710 Acquired absence of both cervix and uterus; Z98.82 Breast implant status; Z90.49 Acquired absence of other specified parts of digestive tract; Z88.8 Allergy status to other drugs, medicaments and biological substances; Z68.20 Body mass index [BMI] 20.0-20.9, adult; Z20.822 Contact with and (suspected) exposure to COVID-19
CPT/HCPCS: 10030; 36415; 43241; 74018; 74176; 74177; 74240; 77012; 80048; 80053; 80202; 81001; 83036; 83605; 83690; 83735; 84100; 84132; 84145; 85025; 85027; 85610; 85730; 87040; 87071; 87076; 87077; 87088; 87186; 87205; 87426; 94664; 94760; 99152; 99153; A4606; B4081; C1751; C1894; C9113; G0378; J1170; J1450; J1650; J1885; J1956; J2060; J2250; J2405; J2543; J2704; J2997; J3010; J3370; J3490; J7030; J7050; J7120; Q9963; Q9967